=== PATIENT | female | born 1960 | race African-American/Black ===

== ENCOUNTER 2016-10-09 13:05 | Emergency (ER) | payer OTHER ==
[2016-10-09] MEDS ORDERED: HYDROCODONE/ACETAMINOPHEN 5-325 MG TABLET PO ONE (13:45)
--- NOTE | 2016-10-09 13:49 | ER Document Report ---
HPI - HPI Patient complains to provider of: right knee pain Onset: Last week Onset/Duration: Persistent Quality of pain: Achy Pain Level: 4 Context: Patient states that 20 years ago she had fallen in a ditch and fractured her knee. Patient was told that she would likely have arthritis as she got older. Patient reports one-week history of right knee pain that is worse when she is moving up and down steps. Patient also reports that for the past week she has had muscle cramps in her left thigh only at nighttime. Patient denies any new injury. Patient denies any shortness of breath or chest pain. Associated Symptoms: Other. denies: Chest pain, Nonproductive cough - Right knee pain, muscle cramps, Productive cough, Fever Exacerbated by: Movement Relieved by: Remaining still Similar symptoms previously: No Recently seen / treated by doctor: No - ROS ROS below otherwise negative: Yes Systems Reviewed and Negative: Yes All other systems reviewed and negative - CONSTITUTIONAL Constitutional: DENIES: Fever - NEURO Neurology: DENIES: Weakness - CARDIOVASCULAR Cardiovascular: DENIES: Chest pain - RESPIRATORY Respiratory: DENIES: Trouble Breathing, Coughing - REPRODUCTIVE Reproductive: DENIES: : - MUSCULOSKELETAL Musculoskeletal: REPORTS: Extremity pain - right knee. DENIES: Swelling - DERM Skin Color: Normal Skin Problems: None Past Medical History - General Information source: Patient - Social History Smoking Status: Never Smoker Frequency of alcohol use: Occasional Drug Abuse: None Occupation: moving and storage Family History: None Patient has suicidal ideation: No Patient has homicidal ideation: No - Past Medical History Cardiac Medical History: Reports: Hx Hypercholesterolemia Pulmonary Medical History: Reports: Hx Asthma Past Surgical History: Reports: Hx Section, Hx Tubal Ligation - Immunizations Hx Diphtheria, Pertussis, Tetanus Vaccination: Yes Vertical Provider Document - CONSTITUTIONAL Agree With Documented VS: Yes Exam Limitations: No Limitations General Appearance: WD/WN, No Apparent Distress - INFECTION CONTROL TRAVEL OUTSIDE OF THE [place] IN LAST 30 DAYS: No - HEENT HEENT: Atraumatic, Normocephalic - NECK Neck: Normal Inspection, Supple - RESPIRATORY Respiratory: Breath Sounds Normal, No Respiratory Distress, Chest Non-Tender O2 Sat by Pulse Oximetry: 99 - CARDIOVASCULAR Cardiovascular: Regular Rate, Regular Rhythm, No Murmur Pulses: Normal: Posterior tibial - BACK Back: Normal Inspection - MUSCULOSKELETAL/EXTREMETIES Musculoskeletal/Extremeties: MAEW, Tender - Tenderness to medial compartment of right knee joint, no effusion, no laxity with varus or valgus maneuvers. Normal skin color and temperature overlying joint, No Edema. negative: Eccymosis - NEURO Level of Consciousness: Awake, Alert, Appropriate Motor/Sensory: No Motor Deficit, No Sensory Deficit - DERM Integumentary: Warm, Dry, No Rash Course - Vital Signs Vital signs: Temp Pulse Resp BP Pulse Ox 98.7 F 65 18 135/81 H 99 10/09/16 13:13 10/09/16 13:13 10/09/16 13:13 10/09/16 13:13 10/09/16 13:13 - Laboratory Result Diagrams: 10/09/16 13:58 10/09/16 13:58 Laboratory results interpreted by me: 10/09/16 15:13 Labs- Entire Visit 10/09/16 10/09/16 13:58 13:58 WBC 6.2 RBC 4.31 Hgb 12.6 Hct 37.9 MCV 88 MCH 29.2 MCHC 33.2 RDW 14.8 H Plt Count 359 Seg Neutrophils % 50.1 Lymphocytes % 36.8 Monocytes % 11.0 Eosinophils % 1.5 Basophils % 0.6 Absolute Neutrophils 3.1 Absolute Lymphocytes 2.3 Absolute Monocytes 0.7 Absolute Eosinophils 0.1 Absolute Basophils 0.0 Sodium 143.8 Potassium 4.5 Chloride 104 Carbon Dioxide 29 Anion Gap 11 BUN 17 Creatinine 0.95 Est GFR ( Amer) > 60 Est GFR (Non-Af Amer) > 60 Glucose 80 Calcium 9.7 Creatine Kinase 73 Discharge - Discharge Clinical Impression: Leg cramps Qualifiers: Laterality: right Qualified Code(s): R25.2 - Cramp and spasm Knee pain, right Qualifiers: Chronicity: acute Qualified Code(s): M25.561 - Pain in right knee Condition: Stable Disposition: HOME, SELF-CARE Instructions: Sprained Knee ([facility]), Ice & Elevation ([facility]), Use of Crutches ([facility]) , Leg Cramps ([facility]), Muscle Relaxers ([facility]) Additional Instructions: Return immediately for any new or worsening symptoms Followup with your primary care provider, call tomorrow to make a followup appointment Follow up with orthopedic DrStacia for any continued pain or problems Prescriptions: Cyclobenzaprine HCl [Flexeril 10 Mg Tablet] 10 mg PO TID #15 tablet Naproxen [Naprosyn 250 Nmg Tablet] 1 tab PO BID #14 tablet Forms: Return to Work Referrals: [facility] [Provider Group] - Follow up as needed [facility] [Provider Group] - Follow up in 3-5 days
[2016-10-09 14:11] LABS: ABSOLUTE EOSINOPHILS # (AUTO) 0.1 10^3/uL (0.0-0.6); ABSOLUTE LYMPHOCYTES (AUTO) 2.3 10^3/uL (0.5-4.7); ABSOLUTE MONOCYTES (AUTO) 0.7 10^3/uL (0.1-1.4); ABSOLUTE NEUT (AUTO) 3.1 10^3/uL (1.7-8.2); BASOPHILS % (AUTO) 0.6 % (0-2); EOSINOPHILS % (AUTO) 1.5 % (0-6); HEMATOCRIT 37.9 % (36.0-47.0); HEMOGLOBIN 12.6 g/dL (12.0-15.5); HGB HCT DIFFERENCE -0.1; LYMPHOCYTES % (AUTO) 36.8 % (13-45); MEAN CORPUSCULAR HEMOGLOBIN 29.2 pg (27.0-33.4); MEAN CORPUSCULAR HGB CONC 33.2 g/dL (32.0-36.0); MEAN CORPUSCULAR VOLUME 88 fl (80-97); RED BLOOD COUNT 4.31 10^6/uL (3.72-5.28); RED CELL DISTRIBUTION WIDTH 14.8 % (11.5-14.0); SEGMENTED NEUTROPHILS % (AUTO) 50.1 % (42-78); WHITE BLOOD COUNT 6.2 10^3/uL (4.0-10.5)
[2016-10-09 14:30] LABS: ANION GAP 11 (5-19); BLOOD UREA NITROGEN 17 mg/dL (7-20); CALCIUM 9.7 mg/dL (8.4-10.2); CARBON DIOXIDE 29 mmol/L (22-30); CHLORIDE 104 mmol/L (98-107); CREATINE KINASE 73 U/L (30-135); CREATININE RESULT 0.95 mg/dL (0.52-1.25); GLUCOSE 80 mg/dL (75-110); POTASSIUM 4.5 mmol/L (3.6-5.0); SODIUM 143.8 mmol/L (137-145)
[2016-10-09 15:41] VITALS: BP 121/63
== END 2016-10-09 15:42 | disposition home or self-care (01) ==
LOC: ER 13:05
DX: M25.561 Pain in right knee (principal); R25.2 Cramp and spasm; Z87.81 Personal history of (healed) traumatic fracture; J45.909 Unspecified asthma, uncomplicated
CPT/HCPCS: 36415; 80048; 82550; 85025; 99283

== ENCOUNTER 2017-09-29 08:28 | Emergency (ER) | payer BC, OTHER ==
--- NOTE | 2017-09-29 08:42 | ER Document Report ---
HPI - HPI Patient complains to provider of: upper right arm rash Onset: Other - yesterday Pain Level: 5 Context: 57 yo female with painful vesicular rash right upper arm. Had pain to the arm before the rash broke out. No fever. No hx HSV or shingles, did have chickenpox as child. Associated Symptoms: None Exacerbated by: Denies Relieved by: Denies Similar symptoms previously: No Recently seen / treated by doctor: No - ROS ROS below otherwise negative: Yes Systems Reviewed and Negative: Yes All other systems reviewed and negative - REPRODUCTIVE Reproductive: DENIES: : Past Medical History - General Information source: Patient - Social History Smoking Status: Unknown if Ever Smoked Frequency of alcohol use: None Drug Abuse: None Lives with: Spouse/Significant other Family History: None - Past Medical History Cardiac Medical History: Reports: Hx Hypercholesterolemia Pulmonary Medical History: Reports: Hx Asthma Renal/ Medical History: Denies: Hx Peritoneal Dialysis Past Surgical History: Reports: Hx Section, Hx Tubal Ligation. Denies : Hx Pancreatic Surgery - Immunizations Hx Diphtheria, Pertussis, Tetanus Vaccination: Yes Vertical Provider Document - CONSTITUTIONAL Agree With Documented VS: Yes Exam Limitations: No Limitations General Appearance: No Apparent Distress - INFECTION CONTROL TRAVEL OUTSIDE OF THE [place] IN LAST 30 DAYS: No - HEENT HEENT: Normocephalic - NECK Neck: Supple - MUSCULOSKELETAL/EXTREMETIES Musculoskeletal/Extremeties: MAEW, Tender - vesicular rash right lateral upper arm , no adenitis - NEURO Level of Consciousness: Awake, Alert Motor/Sensory: No Motor Deficit, No Sensory Deficit - DERM Integumentary: Rash - see above Course - Vital Signs Vital signs: Temp Pulse Resp BP Pulse Ox 97.8 F 58 L 18 138/73 H 99 09/29/17 08:38 09/29/17 08:38 09/29/17 08:38 09/29/17 08:38 09/29/17 08:38 Discharge - Discharge Clinical Impression: right deltoid shingles Condition: Good Disposition: HOME, SELF-CARE Instructions: Acetaminophen, Acyclovir ([facility]), Shingles ([facility]) Additional Instructions: bacitracin Keep the rash covered since she will shed the virus Viral culture sent to determine if this is shingles or herpes simplex virus Tylenol for pain Return to the emergency room for any worsening Call me October 03 after 9 AM at [phone] for your culture results Prescriptions: Acyclovir 800 mg PO 5XD #25 tablet Referrals: LUCERO SHELLEY, [ACTIVE STAFF] - Follow up as needed
[2017-09-29] MEDS ORDERED: ACETAMINOPHEN 325 MG TABLET PO ONE (08:56)
[2017-09-29] MEDS ORDERED: ACYCLOVIR 800 MG TABLET PO ONE (08:56)
[2017-09-29] MEDS ORDERED: ONDANSETRON 4 MG TAB.RAPDIS PO ONE (08:57)
[2017-09-29 09:44] VITALS: BP 144/79
== END 2017-09-29 09:46 | disposition home or self-care (01) ==
LOC: ER 08:28
DX: B02.9 Zoster without complications (principal); J45.909 Unspecified asthma, uncomplicated
CPT/HCPCS: 99283; 87252; S0119; J3490

== ENCOUNTER 2018-05-13 10:55 | Emergency (ER) | payer BC, OTHER ==
[2018-05-13 11:00] VITALS: BP 147/69
--- NOTE | 2018-05-13 11:53 | ER Document Report ---
ED Head/Face/Scalp Injury - General Chief Complaint: Head Injury Stated Complaint: FOREHEAD INJURY Time Seen by Provider: 05/13/18 11:45 Mode of Arrival: Ambulatory Information source: Patient Notes: Patient is a 58-year-old female comes emergency room complaining of a head injury. Patient states that last she was in her garage working she inadvertently had laid a break down with the tongs up and as she was walking around she stepped on the head of the right this through the handle up in the air straight at her face and hit her directly in the middle of the forehead. Patient states that the handle was made of metal and it dazed her and she had a large swelling in the area of the next morning and it has gotten slightly better and the swelling has pretty much gone however today she woke up and she had a little bit of discomfort in the area and she thought she ought to have it checked out. She denies having any loss of consciousness no nausea or vomiting currently no headache. She only had a headache for short time after the incident. She did not fall she did not hit any other part of her head but she does remember her head swinging back trying to miss the right before hit her. TRAVEL OUTSIDE OF THE [place] IN LAST 30 DAYS: No - HPI Patient complains to provider of: Contusion, Pain, Swelling Injury to: Forehead Location of problem: Head Occurred: Last week Where: Home Timing: Better Context: Direct blow Loss consciousness: No loss of consciousness Remembers: Injury - Discharge - Related Data Allergies/Adverse Reactions: No Known Allergies Allergy (Verified 05/13/18 10:55) Past Medical History - General Information source: Patient - Patient is - Social History Smoking Status: Never Smoker Cigarette use (# per day): No Chew tobacco use (# tins/day): No Smoking Education Provided: No Frequency of alcohol use: None Drug Abuse: None Family History: None, Reviewed & Not Pertinent - Past Medical History Cardiac Medical History: Reports: Hx Hypercholesterolemia Pulmonary Medical History: Reports: Hx Asthma Renal/ Medical History: Denies: Hx Peritoneal Dialysis Past Surgical History: Reports: Hx Section, Hx Tubal Ligation. Denies : Hx Pancreatic Surgery - Immunizations Hx Diphtheria, Pertussis, Tetanus Vaccination: Yes Review of Systems - Review of Systems Constitutional: No symptoms reported EENT: No symptoms reported Cardiovascular: No symptoms reported Respiratory: No symptoms reported Gastrointestinal: No symptoms reported Genitourinary: No symptoms reported Female Genitourinary: No symptoms reported Musculoskeletal: No symptoms reported Skin: See HPI, Lumps Hematologic/Lymphatic: No symptoms reported Neurological/Psychological: No symptoms reported -: Yes All other systems reviewed and negative Physical Exam - Vital signs Vitals: Temp Pulse Resp BP Pulse Ox 97.6 F 66 18 147/69 H 98 05/13/18 11:00 05/13/18 11:00 05/13/18 11:00 05/13/18 11:00 05/13/18 11:00 Interpretation: Hypertensive - Notes Notes: PHYSICAL EXAMINATION: GENERAL: Patient is well-nourished well-developed obese female who is in no apparent distress on physical exam today. HEAD: , normocephalic. Examination of patient's area of complaint is center forehead just above the nose. There is a small hematoma still present that is somewhat fluctuant. The area also is tender to palpation. There is no discoloration presently. The swelling seems to sit just above the bridge of the nose. There is no tenderness to palpation of the nose. There is no swelling or discoloration of the nose. EYES: Pupils equal round and reactive to light, extraocular movements intact, conjunctiva are normal. ENT: Nares patent, oropharynx clear without exudates. Moist mucous membranes. NECK: Normal range of motion, supple without lymphadenopathy LUNGS: Breath sounds clear to auscultation bilaterally and equal. No wheezes rales or rhonchi. HEART: Regular rate and rhythm without murmurs Female : deferred Musculoskeletal: Normal range of motion, no pitting or edema. No cyanosis. NEUROLOGICAL: Normal speech, normal gait. Normal sensory, motor exams PSYCH: Normal mood, normal affect. SKIN: Warm, Dry, normal turgor, further description of area of interest is middle forehead skin which shows no sign of ecchymosis or abrasions just a small hematoma which is approximately 8 cm round. Depth appears to be about half a centimeter it is still somewhat fluctuant. Course - Re-evaluation Re-evalutation: 05/13/18 11:53 I have cream which is given patient reassurance that this is not a major problem. She had no loss of consciousness she has no other symptoms except of it being tender and a little more sore. I have explained to her that this hematoma is going to take more time to reabsorb because of not a lot of tissue up in the area by the head. I informed her that she probably does have a slight concussion just from her mom jumping back and throwing her head forward and this all so will resolve itself over. Time. Patient is happy with this observation and will be discharged home. - Vital Signs Vital signs: Temp Pulse Resp BP Pulse Ox 97.6 F 66 18 147/69 H 98 05/13/18 11:00 05/13/18 11:00 05/13/18 11:00 05/13/18 11:00 05/13/18 11:00 Discharge - Discharge Clinical Impression: Hematoma and contusion Contusion of forehead Qualifiers: Encounter type: initial encounter Qualified Code(s): S00.83XA - Contusion of other part of head, initial encounter Concussion Qualifiers: Encounter type: initial encounter Loss of consciousness presence/duration: without LOC Qualified Code(s): S06.0X0A - Concussion without loss of consciousness, initial encounter Condition: Stable Disposition: HOME, SELF-CARE Instructions: Scalp Hematoma ([facility]), Contusion ([facility]), Concussion ([facility]) Additional Instructions: As we discussed this type of injury is self-limiting meaning it will resolve itself for course of time. The area that is tender and a little swollen will also be resolved over a period of time. As we discussed there is not a lot of tissue up there is what it takes a longer to really absorb take back the swelling. Continue with your ibuprofen 3 times a day with food. You may use ice or moist heat as we discussed. The moist heat please do not use a microwave to heat up the cough. Just a rag is warm and she can stand it from the sink apply it let it cool down to reapply it let it cool down put it up and come back several hours later and do it again. Should you have any concerns or problems return to ER for recheck. [facility]errals: [facility] [NO LOCAL MD] - Follow up as needed
== END 2018-05-13 12:00 | disposition home or self-care (01) ==
LOC: ER 10:55
DX: S00.83XA Contusion of other part of head, initial encounter (principal); S06.0X0A Concussion without loss of consciousness, initial encounter; W22.8XXA Striking against or struck by other objects, initial encounter; Y92.009 Unspecified place in unspecified non-institutional (private) residence as the place of occurrence of the external cause; Z98.51 Tubal ligation status
CPT/HCPCS: 99283

== ENCOUNTER → 2020-01-01 | Outpatient (CLI) | payer BC ==
--- NOTE | 2020-01-01 14:42 | ER [facility] ASSESSMENT REPORT ---
Intake - In the Last 14 days Have you traveled outside [place]?: No Have you been in close contact with someone CONFIRMED: No Worked in Healthcare?: No - Symptoms Subjective Fever(Allen feverish): No Chills: No Muscule Aches: No Runny Nose: No Sore Throat: No Cough (New or worsening chronic cough): No Shortness of breath: No Nausea or Vomiting: No Headache: No Abdominal Pain: No Diarrhea(3 or more loose stools in last 24 hours): No - Do you have any of the following Chronic lung disease: Asthma or emphysema or COPD: No Cystic Fibrosis: No Diabetes: No High Blood Pressure: No Cardiovascular Disease: Yes Chronic Kidney Disease: No Chronic Liver Disease: No Chronic blood disorder like Sickle Cell Disease: No Weak immune system due to disease or medication: No Neurologic condition that limits movement: No Developmental delay - Moderate to Severe: No Recent (within past 2 weeks) or current : No Morbid Obesity (>100 pounds over ideal weight): No - Objective Temperature: 98.7 F Pulse Rate: 87 Respiratory Rate: 14 Blood Pressure: 118/58 O2 Sat by Pulse Oximetry: 97 Objective: Given above, testing performed: If Testing Performed: Test Specimen Type Sent to General - General Information source: Patient Notes: Patient presents to the [facility] for screening for the coronavirus. Patient denies any symptoms at this time. Patient does have underlying cardiovascular disease. Patient had family member who was recently tested and she wanted to be tested as well. - Related Data Allergies/Adverse Reactions: No Known Allergies Allergy (Verified 05/13/18 10:55) Past Medical History - General Information source: Patient - Social History Smoking Status: Never Smoker Lives with: Family Family History: None, Reviewed & Not Pertinent - Past Medical History Cardiac Medical History: Reports: Hx Hypercholesterolemia Renal/ Medical History: Denies: Hx Peritoneal Dialysis Past Surgical History: Reports: Hx Section, Hx Tubal Ligation Physical Exam - Notes Notes: Full physical exam could not be performed due to covid 19 isolation protocols. Constitutional: Nontoxic appearance, no acute distress Eyes: Nonicteric, extraocular movements intact, sclera clear Cardiovascular: Heart rate and rhythm regular, no JVD Respiratory: Breath sounds clear bilaterally, nonlabored breathing, no use of accessory muscles, no tachypnea Gastrointestinal: Abdomen not distended Muculoskeletal: Moves all extremities well Neuro: Awake alert oriented, normal speech Psych: Normal mood and affect Diagnostic Results Laboratory Results: The patient was evaluated during the global Covid 19 pandemic, and that diagnosis was suspected/considered upon their initial presentation. Their evaluation, treatment and testing was consistent with current guidelines for patients who present with complaints or symptoms that may be related to Covid 19. Patient presents with upper respiratory symptoms worrisome for possible Covid 19. Patient does not have emergency worrying symptoms such as difficulty breathing, shortness of breath, chest pain, pressure, confusion or cyanosis. Patient appears suitable for discharge as vital signs are stable and patient is nontoxic in appearance. Good return precautions have been discussed with patient, patient verbalized understanding and is agreeable with discharge plan of care at this time. Patient Education/Counseling Counseling/Education: Patient was provided with discharge information including: As a person under investigation for Covid 19, the [place] department of Health and Human Services, division of public health advises you to adhere to the following guidance until your test results are reported to you. If your test result is positive, you will receive additional information from your provider and your local health department at that time. Remain at home until you are cleared by the health provider or public health au thorities. Keep a log of visitors to your home, notify any visitors to your home of your isolation status. If you plan to move to a new address or leave the county, notify the local health department in your County. Call your doctor or seek care if you have an urgent medical need. Before seeking medical care, call ahead to get instructions from the provider before arriving at the medical office clinic or hospital. Notify them that you are being tested for the virus that causes Covid 19 so that arrangements can be made, as necessary, to prevent transmission to others in the healthcare setting. Next, notify the local health department in your county. If a medical emergency arises and you need to call 911, inform the first responders that you are being tested for the virus that causes Covid 19. Next, notify the local health department in your county. [facility] Discharge - Discharge Clinical Impression: Encounter for screening laboratory testing for COVID-19 virus Condition: Stable Disposition: Home; Selfcare
[2020-01-01 15:06] VITALS: BP 118/58
== END ==
LOC: RDC 14:09
PROVIDERS: ATTEND Nurse Practitioner Family
DX: Z03.818 Encounter for observation for suspected exposure to other biological agents ruled out (principal)
CPT/HCPCS: 87635; 99201; 99211; C9803